=== PATIENT | male | born 1955 | race Caucasian/White ===

== ENCOUNTER 2019-01-05 16:27 | Emergency (ER) | payer OTHER, BC ==
[~2019-01-05] VITALS: Ht 172.7 cm; Wt 81.8 kg
[2019-01-05 17:31] LABS: BASO % 0.3 % (0.0-2.0); GRAN # 5.1 (1.4-6.5); GRAN % 80.2 % (42.2-75.2); HEMATOCRIT 46.1 % (42.0-52.0); HEMOGLOBIN 15.5 g/dl (13.5-18.0); LYMPH # 0.7 (1.2-3.4); LYMPH % 10.2 % (20.0-51.0); MEAN CELL VOLUME 87 fl (80.0-100.0); MEAN CORPUSCULAR HEMOGLOBIN 29 pg (27.0-31.0); MEAN CORPUSCULAR HGB CONC 34 g/dl (33.0-37.0); MEAN PLATELET VOLUME 10.5 fl (7.4-10.4); MONO # 0.6 (0.1-0.6); MONO % 8.8 % (1.7-9.3); PLATELET COUNT 182 K/mm3 (130-400); RED BLOOD COUNT 5.32 M/mm3 (4.20-5.60); REDCELL DISTRIBUTION WIDTH-CV 13.5 % (11.5-14.5)
[2019-01-05 17:40] LABS: BILIRUBIN,TOTAL 0.7 mg/dL (0.0-1.0); CALCIUM 9.2 mg/dL (8.4-10.2); CREATININE, serum 1.68 mg/dL (0.66-1.25); POTASSIUM 5.1 mmol/L (3.4-5.0); TOTAL PROTEIN 7.2 gm/dL (6.4-8.2)
[2019-01-05 17:44] LABS: COLLECTION METHOD CLEAN CATCH
[2019-01-05 17:52] LABS: HYALINE CAST >12 /lpf; MUCOUS Present /lpf; PH 5 (5-8); SQUAMOUS EPITHELIAL 0-2 /hpf; URINE APPEARANCE Clear; URINE BACTERIA None Seen /hpf; URINE BILIRUBIN Negative (NEGATIVE); URINE BLOOD Negative (NEGATIVE); URINE COLOR Amber; URINE GLUCOSE Negative (NEGATIVE); URINE KETONE Trace (NEGATIVE); URINE LEUKOCYTE ESTERASE Negative (NEGATIVE); URINE NITRATE Negative (NEGATIVE); URINE PROTEIN(semi-quant) 1+ (NEGATIVE); URINE UROBILINOGEN Negative (NEGATIVE)
[2019-01-05 19:48] VITALS: BP 106/70; PULSE 89; TEMP 101
[2019-01-05] MEDS ORDERED: ZOFRAN 4MG T4 MG/TAB PO ×2 (20:06)
[2019-01-05] MEDS ORDERED: ZOFRAN ODT4 MG PO (20:30)
== END 2019-01-05 21:03 | disposition home or self-care (01) ==
LOC: COL.ER 16:27
PROVIDERS: Emergency Medicine
DX: R19.7 Diarrhea, unspecified (principal); E86.0 Dehydration
CPT/HCPCS: J1885; J7030

== ENCOUNTER 2024-06-16 12:39 | Emergency (ER) | payer MEDICARE ==
[~2024-06-16] VITALS: Ht 172.7 cm; Wt 77.3 kg
[~2024-06-16 12:39] MED LIST: CRESTOR20 MG PO; PRINIVIL10 MG PO; ROBAXIN 75750 MG/TAB PO; ZOFRAN 4MG T4 MG/TAB PO; ZOFRAN ODT4 MG PO
[2024-06-16 12:47] VITALS: TEMP 98.4
[2024-06-16] MEDS ORDERED: NS 1,000 ML IV ONE (13:15)
[2024-06-16] MEDS ORDERED: fentaNYL 50 MCG/ML 2 ML VIAL IV ONE (13:15)
[2024-06-16] MEDS ORDERED: ceFAZolin 1 G in Water For Injection,Sterile 10 ML IV ONE (13:15)
[2024-06-16] MEDS ORDERED: CEPHALEXIN500 M1 PO (15:21)
[2024-06-16] MEDS ORDERED: NORCO 325 MG-51 TAB PO (15:22)
[2024-06-16 15:45] VITALS: BP 145/81; PULSE 80
== END 2024-06-16 15:50 | disposition home or self-care (01) ==
LOC: COL.ER 12:39
DX: S61.012A Laceration without foreign body of left thumb without damage to nail, initial encounter (principal); W23.0XXA Caught, crushed, jammed, or pinched between moving objects, initial encounter
CPT/HCPCS: J0690; J3010; J7030